=== PATIENT | male | born 1985 | race Native Hawaiian/Other Pacific Islander ===

== ENCOUNTER 2023-04-03 08:45 | Emergency (ER) | payer OTHER ==
[~2023-04-03] VITALS: Ht 180.3 cm; Wt 104.3 kg
[2023-04-03 10:43] VITALS: BP 151/100; TEMP 97.9; O2SAT 99
== END 2023-04-03 10:43 ==
LOC: ER 08:55
DX: Z02.9 Encounter for administrative examinations, unspecified (principal); Z20.822 Contact with and (suspected) exposure to COVID-19